=== PATIENT | female | born 1975 | race Caucasian/White ===

== ENCOUNTER 2025-10-11 21:42 | Emergency (ER) | payer OTHER, SELFPAY ==
[2025-10-11 21:44] VITALS: BP 170/96
[2025-10-11 22:03] LABS: Urine Character Clear (Clear)
--- NOTE | 2025-10-11 23:34 | ED.GENMED ---
History of Present Illness
General
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
Source: patient
Exam Limitations: none
Time Seen by Provider: 10/11/25 22:28
Nursing documentation reviewed up to this point in time: agreed with
History of Present Illness
History of Present Illness:
The patient is a 50-year-old female with history of urinary tract infections over the past two years. Previously, she had no history of such infections. In 2023, she experienced two episodes. She then had an occurrence in April, associated with a
yeast infection. On September 23, she had another episode and was seen at urgent care, where a urinalysis indicated a positive result for a urinary tract infection. She was treated with a 1 week course of Augmentin. Urine culture at that time was
positive for 30-40,000 colony count Enterobacter. Despite the treatment, she continued to have symptoms described as urinary urgency and pressure, but without burning or itching.
She returned to urgent care and had a follow-up urinalysis was negative, but a culture was sent out for further analysis. She states the urine culture was questionably positive for UTI in which she was prescribed Macrobid which she started 2 days
ago.
In her patient portal, this urine culture result from October 04 shows 10-20,000 colony count mixed rey�not consistent with a UTI.
This morning, the patient awoke with a shooting pain originating from her urethra and radiating upwards, later evolving into severe burning on urination as the day progressed. She reports intermittent back pain but no fever. The patient states that
typically she has a strong flow of urine, but today she could only produce a trickle despite an intense urge to void. She has been hydrating well.
She denies any history of interstitial cystitis or kidney stones. The patient does not take any daily medications. Her recent menstrual cycle ended on September 01, and she notes irregular periods. She denies pain with wiping. No vaginal
discharge. Vulvar burning is worse after she urinates.
Throughout the day today she has had increased lower abdominal pressure, discomfort, low back pain more so on the right side. Not relieved with ibuprofen as well as Tylenol.
She admits to somewhat chronic loose stools but denies diarrhea. Denies bloody or black stools. She has not had a fever nor chills.
No history of similar episodes in the past.
Past History
Past History
ED Past Medical History: Other (Occasional UTIs, lumbar DJD)
ED Past Surgical History: Cholecystectomy (2014) and (X 2)
Social History
Tobacco: Non-smoker
Personal:
Living: with family
Employment: Not employed
Family History
Family History: Other (Noncontributory)
Phy Exam
Physical Exam
Physical Exam:
GENERAL: 50-year-old overweight woman appears her stated age, awake and alert, appears mildly uncomfortable but easily communicative. is accompanying.
EYE: anicteric
NECK: Supple, nontender, no meningismus, no significant adenopathy.
ENT: oral mucosa is moist. No rhinorrhea.
CARDIAC: Regular rate and rhythm. no murmur.
LUNGS: Clear breath sounds bilaterally, no acute respiratory distress, no wheezes/rales/rhonchi
ABDOMEN: Rotund, soft, nondistended, moderate tenderness suprapubic and right lower quadrant, no r/g, no cvat. normoactive BS.
: No vulvar erythema nor irritation. There is moderate creamy whitish vaginal discharge. No cervical motion tenderness. Moderate suprapubic tenderness as well as right pelvic tenderness on bimanual exam. Questionable mild fullness right adnexa.
BACK: No midline bony tenderness. No CVA tenderness. Mild right lower lumbar tenderness to palpation.
NEUROLOGICAL: Alert and oriented x3, no focal neuro deficits. Gait is steady.
SKIN: Warm and dry, normal color, skin intact. No rash.
MUSCULOSKELETAL: No C/C/E. peripheral pulses are full and equal b/l. No palpable tenderness.
PSYCH: Normal and appropriate interaction.
Course
Orders/Labs/Results
Orders:
Orders
10/11/25 21:55
Urinalysis Reflex To Culture Urgent
Date Specimen was Collected: 10/11/25
Time Specimen was Collected: 21:50
10/11/25 22:51
Test Result ONCE
10/11/25 23:28
Complete Blood Count/With Diff Urgent
Chlamydia/GC by PCR Urgent
PATTIE Source: Vagina
Specimen Description:
Source:: CERVIX
Date Specimen was Collected: 10/11/25
Time Specimen was Collected: 23:04
Genital Culture Urgent
PATTIE Source: Cervix
Specimen Description:
Date Specimen was Collected: 10/11/25
Time Specimen was Collected: 23:04
Trichomonas - Wet Prep Urgent
PATTIE Source: Vagina
Specimen Description:
Date Specimen was Collected: 10/11/25
Time Specimen was Collected: 23:04
10/11/25 23:35
Ketorolac [Toradol] 30 mg .ROUTE .STK-MED ONE
10/11/25 23:37
Ketorolac [Toradol] 30 mg IV NOW STA
10/11/25 23:43
0.9% Sodium Chloride 1000 ml [Nss] 1,000 ml IV BOLUS
10/11/25 23:53
Comprehensive Metabolic Panel Urgent
Comment: REDAW
HCG, Serum Qualitative Screen Urgent
Comment: REDRAW
10/12/25 00:00
CT Abd/pelvis W Iv Cont Urgent
Reason For Exam: RLQ, R flank, suprapubic pain
10/12/25 02:01
Morphine Sulfate 4 mg .ROUTE .STK-MED ONE
10/12/25 02:02
Morphine Sulfate 4 mg IV NOW STA
10/12/25 02:17
US Pelvis W Transvag Combined Urgent
Comment:
Reason For Exam: severe pelvic, RLQ pain
Abnormal Lab Results
10/11/25 10/11/25 10/12/25
21:55 23:28 00:16
MCH 31.2 H pg
(27.0-31.0)
RDW 14.6 H %
(11.5-14.5)
MPV 11.1 H fL
(7.4-10.4)
Absolute Monos (auto) 0.7 H 10^3/uL
(0.1-0.6)
Sodium 134 L mmol/L
(135-145)
Glucose 102 H mg/dl
(70-99)
ALT 46 H U/L
(0-35)
Urine Ketones 1+ A
(Negative)
10/11/25 23:28
10/12/25 00:16
Vital Signs
Initial and Last Documented VS:
Initial Vital Signs
Temp Pulse Resp BP Pulse Ox
98.1 F 77 20 170/96 99
10/11/25 21:44 10/11/25 21:44 10/11/25 21:44 10/11/25 21:44 10/11/25 21:44
Last Documented Vital Signs
Temp Pulse Resp BP Pulse Ox
98.1 F 74 16 114/58 99
10/11/25 21:44 10/12/25 02:00 10/12/25 02:00 10/12/25 02:00 10/12/25 02:00
MDM/Problems Addressed
Differential Diagnosis Includes:
The Differential Diagnosis includes, in no particular order and is not limited to:
1. Urinary tract infection
2. Pyelonephritis
3. Interstitial cystitis
4. Kidney stone
5. Vaginitis
6. Pelvic inflammatory disease
7. Urethritis
8. Bladder disorder
9. Ovarian cyst
10. Urethral syndrome
MDM/Problems Addressed:
UTI symptoms
Lower abdominal pain
Right back pain
Patient has had ongoing UTI-like symptoms for almost 3 weeks. Initial urine culture showing light growth of Enterococcus but second culture was not consistent with a UTI showing light growth of mixed rey, consistent with contaminant.
Urinalysis tonight is unremarkable. No evidence of UTI.
She is noted to have some lower abdominal tenderness to palpation thus concern for interstitial cystitis, ovarian cyst, appendicitis, diverticulitis. PID is unlikely. Patient is /in a monogamous relationship.
Ureteric stone is also a consideration.
Will check labs and plan for CT abdomen pelvis.
Chronic conditions affecting care: Previous abdomnial surgery
*Radiology
Radiology exam reviewed: radiology read reviewed (CT abdomen pelvis as well as pelvic ultrasound are unremarkable. No acute intra-abdominal nor pelvic pathology. There is note of moderate lumbar DJD and degenerative disc disease.)
*Pulse Oximetry
SaO2: 99
Oxygen Mode of Delivery: Room air
Patient hypoxic: no
*Critical Care Note
Total Time (30-74mins, 75-104mins- exclusive of procedures): Not Applicable
Update Note
Update Note:
03:50
Labs as well as urinalysis are unremarkable.
CT abdomen pelvis is unremarkable save for an element of lumbar DJD/degenerative disc disease. Pelvic ultrasound is unremarkable.
Pelvic pain and right low back pain can certainly be lumbar DJD in nature.
Other consideration is interstitial cystitis.
Recommend Tylenol versus ibuprofen as needed for pain.
Stay well-hydrated on a daily basis.
Recommend prompt follow-up with PCP and patient will be referred to neurology as well.
ED Attending Note
-
Portions of this chart may have been created with voice recognition software.� Occasional wrong word or��sound alike� substitutions may have occurred due to the inherent limitations of voice recognition software.
Discharge Plan
Departure
Patient Disposition: Home (Routine Discharge)
Date of Disposition: 10/12/25
Time of Disposition: 03:51
Patient with high blood pressure during this ER visit?: No
Discharge Problem:
Acute pelvic pain, female
Instructions: Pelvic pain - ED (DC)
Referrals:
Martín Lobato MD [Active, Urology] - Call in 1-3 days for appt
NONE,* [Family Provider, Internal Medicine]
Interventions
Interventions:
*Risk Screen - Suicide Last Done: 10/11/25 21:44
*General Assessment Last Done: 10/11/25 21:44
*Neglect/Abuse Screening Last Done: 10/11/25 21:44
*ED- Fall Risk Assessment Last Done: 10/12/25 01:15
*ED COVID-19 Vaccine History Last Done: 10/12/25 01:15
*ED Influenza Vaccine History Last Done: 10/12/25 01:15
ED-Female Genitourinary Assessment Last Done: 10/11/25 23:32
Discharge Date and Time
Print Language: YAKUT
[2025-10-11] MEDS: TORADOL 30 MG IV (23:38)
[2025-10-11 23:41] LABS: Hematocrit 39.0 % (37.0-47.0); Hemoglobin 13.4 g/dL (12.0-16.0); Mean Corp Hgb Conc. 34.4 g/dL (33.0-37.0); Mean Corpuscular Volume 90.7 fL (81.0-99.0); Nucleated Red Blood Cells % 0 %; Platelet Count 234 10^3/uL (130-400); Red Cell Dist. Width 14.6 % (11.5-14.5)
[2025-10-11] MEDS: NSS 1000 IV (23:43)
[2025-10-11 23:46] VITALS: BP 137/89
[2025-10-11 23:47] VITALS: BMI 46.0
[2025-10-12 00:52] LABS: ALT (SGPT) 46 U/L (0-35); AST (SGOT) 30 U/L (14-36); Albumin 3.8 g/dl (3.5-5.0); Alkaline Phosphatase 106 U/L (38-126); Blood Urea Nitrogen 12 mg/dl (7-17); Calcium 8.6 mg/dl (8.4-10.2); Carbon Dioxide 23 mmol/L (22-30); Chloride 105 mmol/L (98-107); Estimated Creatinine Clearance > 125 ml/min; Glucose 102 mg/dl (70-99); HCG, Serum Qualitative Screen Negative; Potassium 3.6 mmol/L (3.5-5.1); Sodium 134 mmol/L (135-145); Total Protein 7.0 g/dl (6.3-8.2); eGFR > 60.00
[2025-10-12 02:00] VITALS: BP 114/58
[2025-10-12] MEDS: MORPHINE SULFATE 4 MG IV (02:02)
== END 2025-10-12 04:13 | disposition home or self-care (01) ==
LOC: EMR 21:42
PROVIDERS: Student in an Organized Health Care Education/Training Program; EMERGENCY PHYSICIAN Emergency Medicine
DX: R10.21 Pelvic and perineal pain right side (principal); M47.816 Spondylosis without myelopathy or radiculopathy, lumbar region; M51.369 Other intervertebral disc degeneration, lumbar region without mention of lumbar back pain or lower extremity pain; Z87.440 Personal history of urinary (tract) infections
CPT/HCPCS: 99284; 96374; 96375; 96361; 74177; 76830; 76856; 80053; 81003; 84703; 85025; 87070; 87210; 87491; 87591; Q9967